=== PATIENT | female | born 1975 | race Caucasian/White ===

== ENCOUNTER 2018-09-25 17:43 | Emergency (ER) | payer BC ==
[2018-09-25 17:57] VITALS: BP 94/57
--- NOTE | 2018-09-25 18:13 | UC ---
FLU HPI - HPI Summary HPI Summary: 43 yo female presents with body aches, fatigue, and dry cough that started suddenly yesterday. She is concerned that she may have the flu. She took dayquill yesterday which helped a little, but feels worse today. Denies fever, sinus symptoms, sore throat, SOB, n/v. - History of Current Complaint Chief Complaint: UCGeneralIllness Stated Complaint: COUGH, AND ACHES Time Seen by Provider: 09/25/18 18:13 Hx Obtained From: Patient Hx Last Menstrual Period: [id number] Onset/Duration: Sudden Onset Severity Currently: Moderate Severity Initially: Moderate Pain Intensity: 6 Pain Scale Used: 0-10 Numeric - Allergy/Home Medications Allergies/Adverse Reactions: Allergies Allergy/AdvReac Type Severity Reaction Status Date / Time No Known Allergies Allergy Verified 09/25/18 17:58 Home Medications: Home Medications D-Methorphan/PE/Acetaminophen [Vicks Dayquil Cold & Flu 10-5-325 mg/15Ml] 1 liq PO Q6H 09/25/18 [History Confirmed 09/25/18] Ethinyl Estradiol/Drospirenone [Drospirenone/Ethinyl Estr 3-0.02 mg] 1 tab PO DAILY 09/25/18 [History Confirmed 09/25/18] FLUoxetine* [PROzac*] 10 mg PO DAILY 09/25/18 [History Confirmed 09/25/18] LevoCETirizine TAB (NF) [Xyzal TAB (NF)] 5 mg PO DAILY PRN 09/25/18 [History Confirmed 09/25/18] Rizatriptan (NF) [Maxalt-Mixing Tank Operator (NF)] 5 mg PO BID PRN 09/25/18 [History Confirmed 09/25/18] Topiramate [Topiramate ER 50 mg cap] 50 mg PO DAILY 09/25/18 [History Confirmed 09/25/18] PMH/Surg Hx/FS Hx/Imm Hx - Additional Past Medical History Additional PMH: Migraines Allergies - Surgical History Surgical History: None - Family History Known Family History: Positive: None - Social History Occupation: Employed Full-time Lives: With Family Alcohol Use: Rare Substance Use Type: None Smoking Status (MU): Never Smoked Tobacco Review of Systems All Other Systems Reviewed And Are Negative: Yes Constitutional: Positive: Chills, Fatigue, Other - Body aches Skin: Positive: Negative Eyes: Positive: Negative ENT: Positive: Negative Respiratory: Positive: Cough Cardiovascular: Positive: Negative Gastrointestinal: Positive: Negative Neurovascular: Positive: Negative Neurological: Positive: Negative Psychological: Positive: Negative Physical Exam - Summary Physical Exam Summary: GENERAL: NAD. WDWN. No pain distress. SKIN: No rashes, sores, lesions, or open wounds. HEENT: Head: AT/NC Eyes: EOM intact. Conjunctiva clear without inflammation or discharge. Ears: Hearing grossly normal. TMs intact, no bulging, erythema, or edema. Nose: Nasal mucosa pink and moist. NTTP maxillary and frontal sinus. Throat: Posterior oropharynx without exudates, erythema, or tonsillar enlargement. Uvula midline. NECK: Supple. Nontender. No lymphadenopathy. CHEST: CTAB. No r/r/w. No accessory muscle use. Breathing comfortably and in no distress. CV: RRR. Without m/r/g. Pulses intact. Cap refill <2seconds NEURO: Alert. PSYCH: Age appropriate behavior. Triage Information Reviewed: Yes Vital Signs: Initial Vital Signs Temp 99.6 F 09/25/18 17:52 Pulse 92 09/25/18 17:52 Resp 18 09/25/18 17:52 BP 94/57 09/25/18 17:52 Pulse Ox 97 09/25/18 17:52 Laboratory Tests 09/25/18 18:08 Influenza A (Rapid) Positive A Vital Signs Reviewed: Yes Flu Course/Dx - Course Course Of Treatment: POC flu positive. Rx for tamiflu and tessalon for her cough - Differential Dx/Diagnosis Provider Diagnosis: Influenza Discharge - Sign-Out/Discharge Documenting (check all that apply): Patient Departure All imaging exams completed and their final reports reviewed: No Studies - Discharge Plan Condition: Stable Disposition: HOME Prescriptions: Benzonatate CAP* [Tessalon 100 MG CAP*] 100 mg PO TID PRN #21 cap PRN Reason: Cough Oseltamivir CAP* [Tamiflu CAP*] 75 mg PO BID #10 cap Patient Education Materials: Influenza (DC) Referrals: Padma Mcclendon MD [Primary Care Provider] - Additional Instructions: If you develop a fever, shortness of breath, chest pain, new or worsening symptoms - please call your PCP or go to the ED. Rest and drink plenty of fluids. May take tylenol/ibuprofen as directed for any fever or discomfort. - Billing Disposition and Condition Condition: STABLE Disposition: Home - Attestation Statements Provider Attestation: I was available for consult. This patient was seen by the PAYAM. The patient was not presented to, seen by, or examined by me. -Mary
[2018-09-25 18:14] LABS: Influenza A Molecular POSITIVE (Negative)
== END 2018-09-25 18:30 | disposition home or self-care (01) ==
LOC: UCEAST 17:43
DX: J11.1 Influenza due to unidentified influenza virus with other respiratory manifestations (principal); G43.909 Migraine, unspecified, not intractable, without status migrainosus; Z79.899 Other long term (current) drug therapy
CPT/HCPCS: 99212; G0463